=== PATIENT | male | born 1975 ===

== ENCOUNTER 2021-02-11 15:06 | Inpatient (IN) | payer SELFPAY ==
--- NOTE | 2021-02-11 17:11 | XRay Report ---
XR chest routine 2V INDICATION / CLINICAL INFORMATION: cough COMPARISON: None available. FINDINGS: SUPPORT DEVICES: None. HEART / MEDIASTINUM: No significant abnormality. LUNGS / PLEURA: Lungs are clear. Costophrenic sulci are sharp. No pneumothorax. ADDITIONAL FINDINGS: No significant additional findings. IMPRESSION: 1. No acute findings. Signer Name: Tommie Pizarro MD Signed: 02/11/2021 5:06 PM Workstation Name: [id number]
[2021-02-11 17:15] LABS: Basophils # (Auto) 0.1 K/mm3 (0.0-0.1); Basophils % (Auto) 0.6 % (0.0-1.8); Hematocrit 50.6 % (35.5-45.6); Hemoglobin 17.4 gm/dl (11.8-15.2); Lymphocytes # (Auto) 1.2 K/mm3 (1.2-5.4); Mean Corpuscular HGB Conc 34 % (32-34); Mean Corpuscular Volume 93 fl (84-94); Monocytes # (Auto) 0.9 K/mm3 (0.0-0.8); Monocytes % (Auto) 8.7 % (0.0-7.3); Platelet Count 168 K/mm3 (140-440); Red Blood Count 5.42 M/mm3 (3.65-5.03); Red Cell Distribution Width 13.4 % (13.2-15.2)
[2021-02-11 17:39] LABS: Alanine Aminotransferase 10 units/L (7-56); Albumin 4.4 g/dL (3.9-5); BUN/Creatinine Ratio 9; Blood Urea Nitrogen 11 mg/dL (9-20); Calcium 10.2 mg/dL (8.4-10.2); Hemolysis Index 11
--- NOTE | 2021-02-11 18:27 | Event Note ---
ED Screening Note Date of service: 02/11/21 Time: 18:26 ED Screening Note: This initial assessment/diagnostic orders/clinical plan/treatment(s) is/are subject to change based on patients health status, clinical progression and re- assessment by fellow clinical providers in the ED. Further treatment and workup at subsequent clinical providers discretion. Patient/guardian urged not to elope from the ED as their condition may be serious if not clinically assessed and managed. Initial orders include: labs reviewed, patient is in DKA, notified charge nurse of need for bed leroy
[2021-02-12] MEDS ORDERED: SODIUM CHLORIDE 0.9% 1000 ML 1,000 ML IV ONE ×2 (02:25→02:27)
[2021-02-12] MEDS ORDERED: DEXTROSE 50% IN WATER (25GM) 50 ML SYRINGE IV PRN ×2 (02:25→11:40)
--- NOTE | 2021-02-12 02:27 | Emergency Department Report ---
ED General Adult HPI - General Chief complaint: Hyperglycemia Stated complaint: COLD SYMPTOMS PUI?: Yes Time Seen by Provider: 02/12/21 02:22 Source: patient Mode of arrival: Ambulatory Limitations: No Limitations - History of Present Illness Initial comments: Patient is a 46-year-old male that presents emergency room with complaints of cough, cold, fever, body aches and sore throat. Patient also complains of increased urination. Patient states that he does not have a history of diabetes. Patient states his cold symptoms and fever started 3 days ago. Patient states he is also has loss of smell. Patient states that he has not been vaccinated against COVID-19. Patient states he has not been tested for COVID-19. Patient states he does not recall having a sick contact. -: Sudden Consistency: constant Improves with: rest Worsens with: movement Associated Symptoms: cough, fever/chills, loss of appetite, malaise - Related Data Allergies Allergy/AdvReac Type Severity Reaction Status Date / Time No Known Allergies Allergy Unverified 02/11/21 15:42 ED Review of Systems ROS: Stated complaint: COLD SYMPTOMS Other details as noted in HPI Constitutional: see HPI, chills, fever, malaise Eyes: denies: eye pain, eye discharge, vision change ENT: as per HPI, throat pain. denies: ear pain Respiratory: see HPI, cough. denies: shortness of breath, wheezing Cardiovascular: denies: chest pain, palpitations Endocrine: no symptoms reported, increased thirst, increased urine Gastrointestinal: denies: abdominal pain, nausea, diarrhea Genitourinary: denies: urgency, dysuria Musculoskeletal: denies: back pain, joint swelling, arthralgia Skin: denies: rash, lesions Neurological: denies: headache, weakness, paresthesias Psychiatric: denies: anxiety, depression Hematological/Lymphatic: denies: easy bleeding, easy bruising ED Past Medical Hx - Past Medical History Previous Medical History?: No - Surgical History Past Surgical History?: Yes Additional Surgical History: ankle surgery - Family History Family history: no significant - Social History Smoking Status: Never Smoker Substance Use Type: None ED Physical Exam - General Limitations: No Limitations General appearance: alert, in no apparent distress - Head Head exam: Present: atraumatic, normocephalic - Eye Eye exam: Present: normal appearance - ENT ENT exam: Present: mucous membranes dry - Neck Neck exam: Present: normal inspection - Respiratory Respiratory exam: Present: normal lung sounds bilaterally. Absent: respiratory distress - Cardiovascular Cardiovascular Exam: Present: regular rate, normal rhythm. Absent: systolic murmur, diastolic murmur, rubs, gallop - GI/Abdominal GI/Abdominal exam: Present: soft, normal bowel sounds - Rectal Rectal exam: Present: deferred - Extremities Exam Extremities exam: Present: normal inspection - Back Exam Back exam: Present: normal inspection - Neurological Exam Neurological exam: Present: alert, oriented X3 - Psychiatric Psychiatric exam: Present: normal affect, normal mood - Skin Skin exam: Present: warm, dry, intact, normal color. Absent: rash ED Course Vital Signs 02/11/21 02/11/21 15:43 15:47 Temperature 98.8 F 98.8 F Pulse Rate 97 H 93 H Respiratory 20 Rate Blood Pressure 113/78 Blood Pressure 113/78 [Right] O2 Sat by Pulse 98 98 Oximetry - Reevaluation(s) Reevaluation #1: Patient's labs are consistent with DKA. Patient will be started on DKA protocol to include fluids and insulin drip. 02/12/21 02:25 Reevaluation #2: I discussed all results with patient. I discussed plan of care with patient. Patient agrees with plan of care and admission. Patient to be admitted to the hospitalist service. 02/12/21 03:23 - Consultations Consultation #1: Hospitalist consulted for admission. Hospitalist to admit patient. 02/12/21 03:23 ED Medical Decision Making - Lab Data Result diagrams: 02/11/21 16:59 02/12/21 04:57 - Radiology Data Radiology results: report reviewed, image reviewed interpreted by me: Chest x-ray: No pneumonia, no pneumothorax, no foreign body, no osseous findings, no acute findings XR chest routine 2V INDICATION / CLINICAL INFORMATION: cough COMPARISON: None available. FINDINGS: SUPPORT DEVICES: None. HEART / MEDIASTINUM: No significant abnormality. LUNGS / PLEURA: Lungs are clear. Costophrenic sulci are sharp. No pneumothorax. ADDITIONAL FINDINGS: No significant additional findings. IMPRESSION: 1. No acute findings. - Medical Decision Making Patient is a 46-year-old male who presents emergency room with cold-like symptoms, fever, upper respiratory symptoms, increased urination and thirst. Patient had labs done which were essentially unremarkable except for finding consistent with DKA, acidosis, hyperglycemia. Patient had a chest x-ray which was negative for acute findings. I personally reviewed the chest x-ray. Patient started on insulin protocol and DKA protocol immediately after initial evaluation. Patient given IV fluids and placed on insulin drip. Patient admitted to the hospital service for further evaluation and treatment. Critical care time documented due to the multiple reassessments, prolonged time at the bedside, interpretation of diagnostics and labs. - Differential Diagnosis DKA, PUI, Covid, fever, upper respiratory infection Critical Care Time: Yes Critical care time in (mins) excluding proc time.: 35 Critical care attestation.: If time is entered above; I have spent that time in minutes in the direct care of this critically ill patient, excluding procedure time. Critical Care Time: 35 minutes ED Disposition Clinical Impression: Person under investigation for COVID-19 DKA (diabetic ketoacidosis) Qualifiers: Diabetes mellitus type: type 2 Diabetes mellitus complication detail: without coma Qualified Code(s): E11.10 - Type 2 diabetes mellitus with ketoacidosis without coma Fever Qualifiers: Fever type: unspecified Qualified Code(s): R50.9 - Fever, unspecified Upper respiratory infection Qualifiers: URI type: unspecified URI Qualified Code(s): J06.9 - Acute upper respiratory infection, unspecified Disposition: ADMITTED INPATIENT Is pt being admited?: Yes Does the pt Need Aspirin: No Condition: Critical Time of Disposition: 03:23
[2021-02-12] MEDS ORDERED: INSULIN REGULAR, HUMAN 100 UNITS in SODIUM CHLORIDE 0.9% 99 ML IV SCH ×2 (03:00→12:00)
[2021-02-12 03:57] LABS: BUN/Creatinine Ratio 12; Blood Urea Nitrogen 14 mg/dL (9-20); Calcium 10.3 mg/dL (8.4-10.2); Hemolysis Index 20
[2021-02-12] MEDS: D5W/0.45% NACL/KCL 20 MEQ 20 MEQ/1,000 ML BAG IV SCH ×2 (05:46→15:19)
[2021-02-12 06:01] LABS: BUN/Creatinine Ratio 10; Blood Urea Nitrogen 12 mg/dL (9-20); Calcium 8.8 mg/dL (8.4-10.2); Hemolysis Index 9
[2021-02-12 11:28] LABS: BUN/Creatinine Ratio 10; Blood Urea Nitrogen 9 mg/dL (9-20); Calcium 8.9 mg/dL (8.4-10.2); Hemolysis Index 3
[2021-02-12] MEDS ORDERED: MORPHINE 2 MG/1 ML INJ IV PRN (11:34)
[2021-02-12] MEDS ORDERED: ONDANSETRON 4 MG/2 ML INJ IV PRN (11:34)
[2021-02-12] MEDS ORDERED: METOCLOPRAMIDE 10 MG/2 ML INJ IV PRN (11:34)
[2021-02-12] MEDS ORDERED: ACETAMINOPHEN 325 MG TAB PO PRN (11:34)
[2021-02-12] MEDS ORDERED: HYDROmorphone 1 MG/1 ML INJ IV PRN (11:34)
--- NOTE | 2021-02-12 11:34 | History and Physical Report ---
History of Present Illness Date of examination: 02/12/21 Date of admission: 02/12/21 03:23 Chief complaint: Cough body aches and sore throat for 2 days Polyuria for 1 week History of present illness: Patient is a 46-year-old male that presents emergency room with complaints of cough, cold, fever, body aches and sore throat. Patient also complains of increased urination. Patient states that he does not have a history of diabetes. Patient states his cold symptoms and fever started 3 days ago. Patient states he is also has loss of smell. Patient states that he has not been vaccinated against COVID-19. Patient states he has not been tested for COVID-19. Patient states he does not recall having a sick contact. Past History Past Medical History: diabetes Past Surgical History: No surgical history Social history: lives with family, full code Family history: diabetes, hypertension Medications and Allergies Allergies Allergy/AdvReac Type Severity Reaction Status Date / Time No Known Allergies Allergy Unverified 02/11/21 15:42 Home Medications Medication Instructions Recorded Confirmed Last Taken Type Ascorbic Acid [Vitamin C] 1,000 mg PO QDAY #30 tablet 02/14/21 Unknown Rx Cholecalciferol (Vitamin D3) 5,000 unit PO DAILY #30 tablet 02/14/21 Unknown Rx [Vitamin D3] Insulin NPH Hum/Reg Insulin Hm 20 unit SQ BID #2 vial 02/14/21 Unknown Rx [Novolin 70-30 100 Unit/ml Vial] Zinc Sulfate 0 mg PO BID #20 capsule 02/14/21 Unknown Rx Active Meds: Active Medications Dextrose (Dextrose 50% In Water (25gm) 50 Ml Syringe) 50 ml IV Q30MIN PRN; Protocol PRN Reason: Hypoglycemia Insulin Human Regular 100 (units/ Sodium Chloride) 100 mls @ 1 mls/hr IV TITR SARA; Protocol Last Titration: 02/12/21 11:11 Dose: 5 units/hr, 5 mls/hr Documented by: Potassium Chloride/Dextrose/Sod Cl (D5w/0.45% Nacl/Kcl 20 Meq) 20 meq in 1,000 mls @ 125 mls/hr IV DIRECT SARA Last Admin: 02/12/21 05:46 Dose: 125 mls/hr Documented by: Review of Systems All systems: negative Constitutional: fever, chills, sweats, fatigue, poor appetite Respiratory: cough, cough with sputum, congestion Genitourinary Male: urinary frequency Exam - Constitutional Vitals: Temp Pulse Resp BP Pulse Ox 98.8 F 87 22 107/54 97 02/11/21 15:47 02/12/21 11:00 02/12/21 11:00 02/12/21 11:00 02/12/21 11:00 General appearance: Present: no acute distress, well-nourished - EENT Eyes: Present: PERRL ENT: hearing intact, clear oral mucosa, other (Tongue dry) - Neck Neck: Present: supple, normal ROM - Respiratory Respiratory effort: normal Respiratory: bilateral: CTA - Cardiovascular Heart rate: 78 Heart Sounds: Present: S1 & S2. Absent: rub, click - Extremities Extremities: pulses symmetrical, No edema Peripheral Pulses: within normal limits - Abdominal General gastrointestinal: Present: soft, non-tender, non-distended, normal bowel sounds Male genitourinary: Present: normal - Integumentary Integumentary: Present: clear, warm, dry - Musculoskeletal Musculoskeletal: gait normal, strength equal bilaterally - Psychiatric Psychiatric: appropriate mood/affect, intact judgment & insight - Neurologic Neurologic: CNII-XII intact, moves all extremities Results - Labs CBC & Chem 7: 02/14/21 05:20 02/14/21 05:20 Labs: Laboratory Last Values WBC 10.6 K/mm3 (4.5-11.0) 02/11/21 16:59 RBC 5.42 M/mm3 (3.65-5.03) H 02/11/21 16:59 Hgb 17.4 gm/dl (11.8-15.2) H 02/11/21 16:59 Hct 50.6 % (35.5-45.6) H 02/11/21 16:59 MCV 93 fl (84-94) 02/11/21 16:59 MCH 32 pg (28-32) 02/11/21 16:59 MCHC 34 % (32-34) 02/11/21 16:59 RDW 13.4 % (13.2-15.2) 02/11/21 16:59 Plt Count 168 K/mm3 (140-440) 02/11/21 16:59 Lymph % (Auto) 11.0 % (13.4-35.0) L 02/11/21 16:59 [place] % (Auto) 8.7 % (0.0-7.3) H 02/11/21 16:59 Eos % (Auto) 0.0 % (0.0-4.3) 02/11/21 16:59 Baso % (Auto) 0.6 % (0.0-1.8) 02/11/21 16:59 Lymph # (Auto) 1.2 K/mm3 (1.2-5.4) 02/11/21 16:59 [place] # (Auto) 0.9 K/mm3 (0.0-0.8) H 02/11/21 16:59 Eos # (Auto) 0.0 K/mm3 (0.0-0.4) 02/11/21 16:59 Baso # (Auto) 0.1 K/mm3 (0.0-0.1) 02/11/21 16:59 Seg Neutrophils % 79.7 % (40.0-70.0) H 02/11/21 16:59 Seg Neutrophils # 8.5 K/mm3 (1.8-7.7) H 02/11/21 16:59 D-Dimer 240.30 ng/mlDDU (0-234) H 02/12/21 02:42 VBG pH 7.202 (7.320-7.420) L 02/11/21 16:59 Sodium 139 mmol/L (137-145) 02/12/21 04:57 Potassium 4.6 mmol/L (3.6-5.0) 02/12/21 04:57 Chloride 104.5 mmol/L (98-107) 02/12/21 04:57 Carbon Dioxide 12 mmol/L (22-30) L 02/12/21 04:57 Anion Gap 27 mmol/L 02/12/21 04:57 BUN 12 mg/dL (9-20) 02/12/21 04:57 Creatinine 1.2 mg/dL (0.8-1.3) 02/12/21 04:57 Estimated GFR > 60 ml/min 02/12/21 10:34 BUN/Creatinine Ratio 10 % 02/12/21 10:34 Glucose 212 mg/dL (75-100) H 02/12/21 04:57 POC Glucose 217 mg/dL (70-105) H 02/12/21 10:58 Calcium 8.8 mg/dL (8.4-10.2) 02/12/21 04:57 Phosphorus 4.80 mg/dL (2.5-4.5) H 02/12/21 02:42 Magnesium 2.50 mg/dL (1.7-2.3) H 02/12/21 02:42 Ferritin 605.1 ng/mL (30.0-300.0) H 02/12/21 02:42 Total Bilirubin 0.60 mg/dL (0.1-1.2) 02/11/21 16:59 AST 8 units/L (5-40) 02/11/21 16:59 ALT 10 units/L (7-56) 02/11/21 16:59 Alkaline Phosphatase 180 units/L (35-129) H 02/11/21 16:59 Lactate Dehydrogenase 134 units/L (91-180) 02/12/21 02:42 C-Reactive Protein 6.80 mg/dL (0.00-1.30) H 02/12/21 02:42 Total Protein 8.6 g/dL (6.3-8.2) H 02/11/21 16:59 Albumin 4.4 g/dL (3.9-5) 02/11/21 16:59 Albumin/Globulin Ratio 1.0 % 02/11/21 16:59 Procalcitonin < 0.05 ng/mL (<0.15) 02/12/21 02:42 Assessment and Plan Advance Directives: Yes - Patient Problems (1) DKA (diabetic ketoacidosis) Status: Acute Qualifiers: Diabetes mellitus type: type 2 Diabetes mellitus complication detail: without coma Qualified Code(s): E11.10 - Type 2 diabetes mellitus with ketoacidosis without coma Plan to address problem: Patient initiated on DKA protocol and IV insulin and IV fluids Patient also initiated on insulin 70/30 20 units twice a day (2) Person under investigation for COVID-19 Status: Acute Plan to address problem: Coronavirus PCR in a.m. (3) Metabolic acidosis Status: Acute Plan to address problem: IV fluids and IV insulin for now (4) Hyponatremia Status: Acute Plan to address problem: Sodium should correct with correction of blood glucose levels (5) DVT prophylaxis Status: Acute Plan to address problem: On heparin and GI prophylaxis
[2021-02-12] MEDS ORDERED: POTASSIUM CHLORIDE 10 MEQ 10 MEQ/100 ML BAG IV PRN (12:00)
[2021-02-12 13:54] LABS: BUN/Creatinine Ratio 8; Blood Urea Nitrogen 7 mg/dL (9-20); Calcium 9.2 mg/dL (8.4-10.2); Hemolysis Index 1
[2021-02-12] MEDS: HEPARIN 5,000 UNIT/1 ML VIAL SUB-Q SCH ×2 (15:16→22:18)
[2021-02-12 16:38] LABS: BUN/Creatinine Ratio 8; Blood Urea Nitrogen 6 mg/dL (9-20); Calcium 9.1 mg/dL (8.4-10.2); Hemolysis Index 10
[2021-02-12] MEDS ORDERED: DEXTROSE 50% IN WATER (25GM) 50 ML SYRINGE IV ONE (17:30)
[2021-02-12 18:48] LABS: BUN/Creatinine Ratio 6; Blood Urea Nitrogen 5 mg/dL (9-20); Calcium 9.4 mg/dL (8.4-10.2); Hemolysis Index 5
[2021-02-12 18:49] LABS: BUN/Creatinine Ratio 6; Blood Urea Nitrogen 5 mg/dL (9-20); Calcium 9.3 mg/dL (8.4-10.2); Hemolysis Index 3
[2021-02-12 19:58] LABS: BUN/Creatinine Ratio 6; Blood Urea Nitrogen 5 mg/dL (9-20); Calcium 8.8 mg/dL (8.4-10.2); Hemolysis Index 9
[2021-02-13] MEDS ORDERED: DEXTROSE 50% IN WATER (25GM) 50 ML SYRINGE IV PRN (00:28)
[2021-02-13 08:49] LABS: BUN/Creatinine Ratio 8; Blood Urea Nitrogen 8 mg/dL (9-20); Calcium 9.7 mg/dL (8.4-10.2); Hemolysis Index 8
[2021-02-13 09:28] LABS: Bacteria,Urine 1+ /HPF (Negative); Bilirubin,Urine NEG (Negative); Blood,Urine NEG (Negative); Color,Urine Yellow (Yellow); Mucus,Urine FEW /HPF; Urobilinogen,Urine < 2.0 mg/dL (<2.0); WBC,Urine < 1.0 /HPF (0.0-6.0)
[2021-02-13] MEDS: HEPARIN 5,000 UNIT/1 ML VIAL SUB-Q SCH ×2 (10:15→23:37)
[2021-02-13] MEDS: INSULIN REGULAR, HUMAN 100 UNITS/1 ML SUB-Q SCH ×4 (10:15→23:37)
--- NOTE | 2021-02-13 14:06 | Consultation ---
History of Present Illness Consult date: 02/13/21 Requesting physician: KAMARI HESS Reason for consult: other (DKA; COVID-19 infection) History of present illness: PULMONARY/CCM CONSULT NOTE (Full dictation # [id number]) Please see dictated notes for full details Medications and Allergies Allergies Allergy/AdvReac Type Severity Reaction Status Date / Time No Known Allergies Allergy Unverified 02/11/21 15:42 Active Meds: Active Medications Acetaminophen (Acetaminophen 325 Mg Tab) 650 mg PO Q4H PRN PRN Reason: Pain MILD(1-3)/Fever >100.5/MAY Dextrose (Dextrose 50% In Water (25gm) 50 Ml Syringe) 0 ml IV Q30MIN PRN; Protocol PRN Reason: Hypoglycemia Heparin Sodium (Porcine) (Heparin 5,000 Unit/1 Ml Vial) 5,000 unit SUB-Q Q12HR [facility] Last Admin: 02/13/21 10:15 Dose: 5,000 unit Documented by: Hydromorphone HCl (Hydromorphone 1 Mg/1 Ml Inj) 0.5 mg IV Q3H PRN PRN Reason: Pain , Severe (7-10) Potassium Chloride/Dextrose/Sod Cl (D5w/0.45% Nacl/Kcl 20 Meq) 20 meq in 1,000 mls @ 125 mls/hr IV DIRECT SARA Last Infusion: 02/12/21 19:06 Dose: 0 mls/hr Documented by: Potassium Chloride (Kcl 10meq/100ml) 10 meq in 100 mls @ 100 mls/hr IV Q1H PRN PRN Reason: SEE COMMENTS Insulin Human Regular (Insulin Regular, Human 100 Units/1 Ml) 0 units SUB-Q A [facility]; Protocol Last Admin: 02/13/21 10:15 Dose: 3 units Documented by: Metoclopramide HCl (Metoclopramide 10 Mg/2 Ml Inj) 10 mg IV Q6H PRN PRN Reason: Nausea And Vomiting Morphine Sulfate (Morphine 2 Mg/1 Ml Inj) 2 mg IV Q4H PRN PRN Reason: Pain, Moderate (4-6) Ondansetron HCl (Ondansetron 4 Mg/2 Ml Inj) 4 mg IV Q3H PRN PRN Reason: Nausea And Vomiting Sodium Chloride (Sodium Chloride 0.9% 10 Ml Flush Syringe) 10 ml IV BID SARA Last Admin: 02/13/21 10:12 Dose: 10 ml Documented by: Sodium Chloride (Sodium Chloride 0.9% 10 Ml Flush Syringe) 10 ml IV PRN PRN PRN Reason: LINE FLUSH Physical Examination Vital signs: Vital Signs Temp Pulse Resp BP Pulse Ox 98.8 F 97 H 20 113/78 98 02/11/21 15:43 02/11/21 15:43 02/11/21 15:43 02/11/21 15:43 02/11/21 15:43 Results - Laboratory Findings CBC and BMP: 02/11/21 16:59 02/13/21 13:08 PT/INR, D-dimer D-Dimer 240.30 ng/mlDDU (0-234) H 02/12/21 02:42 Abnormal lab findings: Abnormal Labs 02/11/21 02/11/21 02/11/21 15:44 16:59 16:59 RBC 5.42 H Hgb 17.4 H Hct 50.6 H Lymph % (Auto) 11.0 L [place] % (Auto) 8.7 H [place] # (Auto) 0.9 H Seg Neutrophils % 79.7 H Seg Neutrophils # 8.5 H D-Dimer VBG pH Sodium 129 L Chloride 94.1 L Carbon Dioxide 11 L BUN Glucose 409 H POC Glucose 474 H Hemoglobin A1c Calcium Phosphorus Magnesium Ferritin Alkaline Phosphatase 180 H C-Reactive Protein Total Protein 8.6 H Coronavirus (PCR) 02/11/21 02/11/21 02/12/21 16:59 23:18 02:42 RBC Hgb Hct Lymph % (Auto) [place] % (Auto) [place] # (Auto) Seg Neutrophils % Seg Neutrophils # D-Dimer VBG pH 7.202 L Sodium Chloride Carbon Dioxide BUN Glucose POC Glucose 445 H Hemoglobin A1c Calcium Phosphorus 4.80 H Magnesium 2.50 H Ferritin Alkaline Phosphatase C-Reactive Protein Total Protein Coronavirus (PCR) 02/12/21 02/12/21 02/12/21 02:42 02:42 02:42 RBC Hgb Hct Lymph % (Auto) [place] % (Auto) [place] # (Auto) Seg Neutrophils % Seg Neutrophils # D-Dimer 240.30 H VBG pH Sodium 134 L Chloride 96.2 L Carbon Dioxide 9 L* BUN Glucose 427 H POC Glucose Hemoglobin A1c Calcium 10.3 H Phosphorus Magnesium Ferritin 605.1 H Alkaline Phosphatase C-Reactive Protein 6.80 H Total Protein Coronavirus (PCR) 02/12/21 02/12/21 02/12/21 03:12 04:17 04:57 RBC Hgb Hct Lymph % (Auto) [place] % (Auto) [place] # (Auto) Seg Neutrophils % Seg Neutrophils # D-Dimer VBG pH Sodium Chloride Carbon Dioxide 12 L BUN Glucose 212 H POC Glucose 420 H 290 H Hemoglobin A1c Calcium Phosphorus Magnesium Ferritin Alkaline Phosphatase C-Reactive Protein Total Protein Coronavirus (PCR) 02/12/21 02/12/21 02/12/21 05:31 06:55 10:34 RBC Hgb Hct Lymph % (Auto) [place] % (Auto) [place] # (Auto) Seg Neutrophils % Seg Neutrophils # D-Dimer VBG pH Sodium Chloride Carbon Dioxide 12 L BUN Glucose 232 H POC Glucose 208 H 175 H Hemoglobin A1c Calcium Phosphorus Magnesium Ferritin Alkaline Phosphatase C-Reactive Protein Total Protein Coronavirus (PCR) 02/12/21 02/12/21 02/12/21 10:58 13:14 13:14 RBC Hgb Hct Lymph % (Auto) [place] % (Auto) [place] # (Auto) Seg Neutrophils % Seg Neutrophils # D-Dimer VBG pH Sodium Chloride Carbon Dioxide BUN Glucose POC Glucose 217 H Hemoglobin A1c 13.3 H Calcium Phosphorus 1.80 L D Magnesium Ferritin Alkaline Phosphatase C-Reactive Protein Total Protein Coronavirus (PCR) 02/12/21 02/12/21 02/12/21 13:14 15:10 16:05 RBC Hgb Hct Lymph % (Auto) [place] % (Auto) [place] # (Auto) Seg Neutrophils % Seg Neutrophils # D-Dimer VBG pH Sodium 136 L Chloride 107.6 H Carbon Dioxide 13 L 12 L BUN 7 L 6 L Glucose 243 H 194 H POC Glucose 236 H Hemoglobin A1c Calcium Phosphorus Magnesium Ferritin Alkaline Phosphatase C-Reactive Protein Total Protein Coronavirus (PCR) 02/12/21 02/12/21 02/12/21 18:20 18:20 19:26 RBC Hgb Hct Lymph % (Auto) [place] % (Auto) [place] # (Auto) Seg Neutrophils % Seg Neutrophils # D-Dimer VBG pH Sodium Chloride 108.5 H 109.5 H 107.4 H Carbon Dioxide 17 L 17 L 15 L BUN 5 L 5 L 5 L Glucose POC Glucose Hemoglobin A1c Calcium Phosphorus Magnesium Ferritin Alkaline Phosphatase C-Reactive Protein Total Protein Coronavirus (PCR) 02/12/21 02/13/21 02/13/21 Unknown 00:11 07:58 RBC Hgb Hct Lymph % (Auto) [place] % (Auto) [place] # (Auto) Seg Neutrophils % Seg Neutrophils # D-Dimer VBG pH Sodium Chloride Carbon Dioxide 12 L BUN 8 L Glucose 253 H POC Glucose 251 H Hemoglobin A1c Calcium Phosphorus Magnesium Ferritin Alkaline Phosphatase C-Reactive Protein Total Protein Coronavirus (PCR) Positive A 02/13/21 09:03 RBC Hgb Hct Lymph % (Auto) [place] % (Auto) [place] # (Auto) Seg Neutrophils % Seg Neutrophils # D-Dimer VBG pH Sodium Chloride Carbon Dioxide BUN Glucose POC Glucose 231 H Hemoglobin A1c Calcium Phosphorus Magnesium Ferritin Alkaline Phosphatase C-Reactive Protein Total Protein Coronavirus (PCR)
[2021-02-13 14:11] LABS: BUN/Creatinine Ratio 9; Blood Urea Nitrogen 9 mg/dL (9-20); Hemolysis Index 27
--- NOTE | 2021-02-13 17:30 | Discharge Summary ---
Providers - Providers Date of Admission: 02/12/21 03:23 Date of discharge: 02/13/21 Attending physician: KAMARI HESS 02/12/21 11:34 Consult to Physician [CONS] Routine Comment: Consulting Provider: ANTONIA BRADFORD Physician Instructions: Reason For Exam: DKA 02/12/21 11:40 Consult to Dietitian/Nutrition [CONS] Routine Physician Instructions: Diabetic diet education Reason For Exam: DKA Reason for Consult: Nutrition Recommendations Reason for Consult: Diet education Primary care physician: [employer] Hospitalization Condition: Critical Disposition: 01 HOME / SELF CARE / HOMELESS - Discharge Diagnoses (1) Person under investigation for COVID-19 Status: Acute (2) DKA (diabetic ketoacidosis) Status: Acute Qualifiers: Diabetes mellitus type: type 2 Diabetes mellitus complication detail: without coma Qualified Code(s): E11.10 - Type 2 diabetes mellitus with ketoacidosis without coma Exam - Constitutional Vitals: Temp Pulse Resp BP Pulse Ox 98.2 F 81 16 91/54 98 02/13/21 10:27 02/13/21 13:00 02/13/21 15:00 02/13/21 15:00 02/13/21 15:00 Plan Follow up with: PRIMARY CAREMD [Primary Care Provider] - 3-5 Days
--- NOTE | 2021-02-13 17:33 | Progress Note ---
Assessment and Plan - Patient Problems (1) Person under investigation for COVID-19 Status: Acute Plan to address problem: Coronavirus PCR positive On room air No need for supplemental oxygen (2) DKA (diabetic ketoacidosis) Status: Acute Qualifiers: Diabetes mellitus type: type 2 Diabetes mellitus complication detail: without coma Qualified Code(s): E11.10 - Type 2 diabetes mellitus with ketoacidosis without coma Plan to address problem: DKA improved but patient still in metabolic acidosis IV insulin stop patient still in metabolic acidosis glucose levels are improved IV fluids for now and frequent Accu-Cheks and high-dose insulin coverage Patient also initiated on Novolin 70/30 20 units twice a day Patient counseled about diabetes and the need for regular follow-ups with his PCP (3) Metabolic acidosis Status: Acute Plan to address problem: Improving (4) Hyponatremia Status: Acute Plan to address problem: Sodium should correct with correction of blood glucose levels (5) DVT prophylaxis Status: Acute Plan to address problem: On heparin and GI prophylaxis Subjective Date of service: 02/13/21 Principal diagnosis: DKA and coronavirus PCR positive Interval history: Patient is doing well now and on room air No need for oxygen Patient is coronavirus positive Glucose levels are better patient still in severe metabolic acidosis Objective - Constitutional Vitals: Vital Signs - 12hr 02/13/21 02/13/21 02/13/21 06:00 06:30 07:00 Temperature Pulse Rate Respiratory 16 Rate Blood Pressure 126/85 126/85 131/90 O2 Sat by Pulse 99 99 97 Oximetry 02/13/21 02/13/21 02/13/21 08:00 09:00 09:16 Temperature Pulse Rate Respiratory Rate Blood Pressure O2 Sat by Pulse 98 97 97 Oximetry 02/13/21 02/13/21 02/13/21 09:30 09:46 10:00 Temperature Pulse Rate Respiratory Rate Blood Pressure O2 Sat by Pulse 96 99 99 Oximetry 02/13/21 02/13/21 02/13/21 10:16 10:25 10:27 Temperature 98.2 F Pulse Rate 110 H Respiratory 16 Rate Blood Pressure 119/77 O2 Sat by Pulse 98 99 Oximetry 02/13/21 02/13/21 02/13/21 11:00 12:00 13:00 Temperature Pulse Rate 94 H 94 H 81 Respiratory 13 20 17 Rate Blood Pressure 109/85 106/75 110/74 O2 Sat by Pulse 98 99 97 Oximetry 02/13/21 02/13/21 14:00 15:00 Temperature Pulse Rate Respiratory 16 16 Rate Blood Pressure 112/66 91/54 O2 Sat by Pulse 95 98 Oximetry General appearance: Present: no acute distress, well-nourished - EENT Eyes: PERRL, EOM intact ENT: hearing intact, clear oral mucosa Ears: bilateral: normal - Neck Neck: supple, normal ROM - Respiratory Respiratory effort: normal Respiratory: bilateral: CTA - Breasts Breasts: normal - Cardiovascular Heart rate: 78 Rhythm: regular Heart Sounds: Present: S1 & S2. Absent: gallop, rub Extremities: pulses intact, No edema, normal color, Full ROM - Gastrointestinal General gastrointestinal: Present: soft, non-tender, non-distended, normal bowel sounds - Genitourinary Male genitourinary: normal - Integumentary Integumentary: clear, warm, dry - Musculoskeletal Musculoskeletal: 1, strength equal bilaterally - Neurologic Neurologic: moves all extremities - Psychiatric Psychiatric: memory intact, appropriate mood/affect, intact judgment & insight - Labs CBC & Chem 7: 02/14/21 05:20 02/14/21 05:20 Labs: Abnormal lab results 02/12/21 02/12/21 02/12/21 Range/Units 18:20 18:20 19:26 Sodium (137-145) mmol/L Chloride 108.5 H 109.5 H 107.4 H (98-107) mmol/L Carbon Dioxide 17 L 17 L 15 L (22-30) mmol/L BUN 5 L 5 L 5 L (9-20) mg/dL Glucose (75-100) mg/dL POC Glucose (70-105) mg/dL 02/13/21 02/13/21 02/13/21 Range/Units 00:11 07:58 09:03 Sodium (137-145) mmol/L Chloride (98-107) mmol/L Carbon Dioxide 12 L (22-30) mmol/L BUN 8 L (9-20) mg/dL Glucose 253 H (75-100) mg/dL POC Glucose 251 H 231 H (70-105) mg/dL 02/13/21 02/13/21 Range/Units 13:08 15:37 Sodium 136 L (137-145) mmol/L Chloride (98-107) mmol/L Carbon Dioxide 11 L (22-30) mmol/L BUN (9-20) mg/dL Glucose 250 H (75-100) mg/dL POC Glucose 249 H (70-105) mg/dL
[2021-02-13] MEDS ORDERED: SODIUM CHLORIDE 0.9% 1000 ML 1,000 ML IV SCH (18:30)
--- NOTE | 2021-02-13 23:10 | Consultation ---
DATE OF CONSULTATION: 02/13/2021 PULMONARY CRITICAL CARE CONSULTATION CONSULTING PHYSICIAN: Dr. Viera. REASON FOR CONSULTATION: Diabetic ketoacidosis. CHIEF COMPLAINT AND HISTORY OF PRESENT ILLNESS: The patient is a 46-year-old male who denied any real past medical history, came into the emergency room complaining of a cough, cold, fevers, body aches and a sore throat. He also complained of polydipsia or polyuria. Denied a history of diabetes. His symptoms started 3 days before presentation. He also admitted to loss of smell and loss of taste. He has not been vaccinated about COVID-19 and had not been tested so far for COVID-19 and was started on IV insulin on DKA protocol and we are asked to assist with management. However, the patient since tested positive for COVID-19 infection. When I stopped by to see him, he was resting in bed. Denied any real respiratory symptoms. He states that his sense of taste and smell had come back. He was on room air. Denied chest pain. Denied gross or streaky hemoptysis. When asked about tobacco use/abuse history, he described himself as a never smoker. This really is as much of the history of presentation as I have. PAST MEDICAL HISTORY: None. PAST SURGICAL HISTORY: He has had surgery to his ankle. MEDICATIONS: He was on at the time I stopped by to see him, according to the medication administration record included the following: Tylenol 650 mg p.o. q. 4 hours p.r.n. mild pain or fever, heparin 5000 units subQ q. 12 hours, Dilaudid 0.5 mg IV q. 3 hours p.r.n. severe pain, insulin via sliding scale. The IV insulin has been stopped. Reglan 10 mg IV q. 6 hours p.r.n. nausea and vomiting, Zofran 4 mg IV q. 3 hours p.r.n. nausea and vomiting, morphine sulfate 2 mg IV q. 4 hours p.r.n. moderate pain, potassium was being replaced. He was also on potassium. He had been on a D5 half NS with 20 mEq of K drip at 125 mL per hour. ALLERGIES: No known drug allergies. DIET: Well built gentleman, obese actually. Denies acute weight loss or gain in the preceding few weeks to months. SOCIAL HISTORY: Lives in the community. Denies alcohol, tobacco or illicit drug use or abuse. FAMILY HISTORY: Otherwise, noncontributory. REVIEW OF SYSTEMS: No loss of consciousness. No new onset seizures. No new onset focal weakness. Denies gross hematochezia or melena. Denies gross hematuria or dysuria. He had the polyuria. He had the polydipsia. He denies heat or cold intolerance. Complete 13 system review of system was obtained. Pertinent positives and/or negatives as in body of the history above, otherwise noncontributory. PHYSICAL EXAMINATION: VITAL SIGNS: At presentation and since he has been afebrile, presentation temperature 98.8 degrees Fahrenheit, pulse of 97, respiratory rate of 20, blood pressure 113/78, O2 sats were 98% on room air. GENERAL: He is a middle-aged obese male. Normocephalic, atraumatic, talking to me in full sentences without significantly increased respiratory effort at rest. HEAD, EYES, EARS, NOSE AND THROAT: Anicteric. No conjunctival erythema. Oropharynx was moist. NECK: No gross jugular venous distention, no thyromegaly. Grossly, there were no palpable lymph nodes in the supraclavicular or submandibular lymph node chains. LUNGS: Auscultation of both lung yun unremarkable. Lungs were clear bilaterally with good bilateral air movement. HEART: Sounds 1 and 2 are heard. Regular rate and rhythm without overt rubs or murmurs. ABDOMEN: Soft, full, bowel sounds are positive, nontender. No palpable hepatosplenomegaly. EXTREMITIES: Without overt digital clubbing or cyanosis, no pedal edema. Pedal pulses are 2+ bilaterally. NEUROLOGIC: Pupils are equal, round, about 4 mm, reactive to light. Extraocular muscle movements are intact. He moves all 4 extremities spontaneously. SKIN: Normal turgor in the areas examined without overt cellulitis or rash. Please see the wound care nurses' notes for full description of his skin. PSYCHIATRIC: Mood was normal. Affect was appropriate. He appears to have intact judgment and insight. LABORATORY DATA: From my review are as follows: Admission white cell count was 10,600, hemoglobin 17.4, hematocrit 50.6, platelet count 168. No manual differential. D-dimer 240. Venous blood gases showed a pH of 7.20. Serum sodium was 129, potassium 5.0, chloride 94, bicarbonate 11, anion gap 29, BUN 11, creatinine 1.2, glucose was 409. Liver function test within normal limits. Coronavirus PCR test has come back positive. Most recent electrolytes shows his anion gap at 26, glucose at 250. Urinalysis negative for nitrites or leukocyte esterase, really unremarkable. No blood cultures. Normal chest x-ray. ASSESSMENT: 1. Diabetic ketoacidosis. 2. New onset diabetes. 3. Coronavirus-19 infection. 4. Anion gap metabolic acidosis. 5. Hemoconcentration at presentation. PLAN: The patient does not have significant pulmonary symptoms at this time and being diabetic also, no acute indication for systemic steroids. I will put him on vitamin C, zinc supplementation. Infectious disease consultation will be placed to decide on remdesivir therapy. He certainly though can tolerate it based on the liver function and kidney function. The question is, is there any real indication to put him on remdesivir therapy at this point in time. He will be kept in contact and airborne isolation. He is appropriately on DVT prophylaxis. I will be putting him on GI prophylaxis with Pepcid. Flu and pneumonia vaccination will be addressed per protocol. Thank you very much for the consult to follow along and make further recommendations as picture progresses/becomes clearer. Supplemental oxygen will be offered to keep O2 sats greater than or equal to 92% as needed. TID: [id number] RECEIPT: [id number] ESME/GEOVANNI
[2021-02-13] MEDS: ASCORBIC ACID 500 MG TAB PO SCH (23:37)
[2021-02-13] MEDS: ZINC SULFATE 220 MG CAP PO SCH (23:37)
[2021-02-14 07:07] LABS: Alanine Aminotransferase 7 units/L (7-56); Albumin 3.4 g/dL (3.9-5); BUN/Creatinine Ratio 11; Blood Urea Nitrogen 10 mg/dL (9-20); Calcium 9.3 mg/dL (8.4-10.2); Hemolysis Index 64
[2021-02-14 07:59] LABS: Hematocrit 48.4 % (35.5-45.6); Mean Corpuscular HGB Conc 33 % (32-34); Mean Corpuscular Volume 98 fl (84-94); Platelet Count 133 K/mm3 (140-440); Red Blood Count 4.96 M/mm3 (3.65-5.03); Red Cell Distribution Width 13.8 % (13.2-15.2)
[2021-02-14] MEDS: INSULIN REGULAR, HUMAN 100 UNITS/1 ML SUB-Q SCH ×3 (08:51→17:27)
--- NOTE | 2021-02-14 12:55 | Consultation ---
History of Present Illness - Reason for Consult Consult date: 02/14/21 COVID Requesting physician: ANTONIA BRADFORD - History of Present Illness The patient is a 46-year-old male diagnosed with COVID-19, symptomatic for 3 days. Also noted to have DKA, hyperglycemia. Admitted to the hospital. He has remained on room air. Labs reviewed, normal WBC, D-dimer 240, CRP 6.8, ferritin 605, procalcitonin 0.05. Review of Systems: reviewed in the chart, unable to obtain, minimize risk of transmission Medications and Allergies Allergies Allergy/AdvReac Type Severity Reaction Status Date / Time No Known Allergies Allergy Unverified 02/11/21 15:42 Active Meds: Active Medications Acetaminophen (Acetaminophen 325 Mg Tab) 650 mg PO Q4H PRN PRN Reason: Pain MILD(1-3)/Fever >100.5/MAY Ascorbic Acid (Ascorbic Acid 500 Mg Tab) 500 mg PO BID SARA Last Admin: 02/13/21 23:37 Dose: 500 mg Documented by: Dextrose (Dextrose 50% In Water (25gm) 50 Ml Syringe) 0 ml IV Q30MIN PRN; Protocol PRN Reason: Hypoglycemia Heparin Sodium (Porcine) (Heparin 5,000 Unit/1 Ml Vial) 5,000 unit SUB-Q Q12HR SARA Last Admin: 02/13/21 23:37 Dose: 5,000 unit Documented by: Hydromorphone HCl (Hydromorphone 1 Mg/1 Ml Inj) 0.5 mg IV Q3H PRN PRN Reason: Pain , Severe (7-10) Potassium Chloride (Kcl 10meq/100ml) 10 meq in 100 mls @ 100 mls/hr IV Q1H PRN PRN Reason: SEE COMMENTS Sodium Chloride (Nacl 0.9% 1000 Ml) 1,000 mls @ 100 mls/hr IV DIRECT SARA Insulin Human Regular (Insulin Regular, Human 100 Units/1 Ml) 0 units SUB-Q ACHS SARA; Protocol Last Admin: 02/14/21 08:51 Dose: 3 units Documented by: Metoclopramide HCl (Metoclopramide 10 Mg/2 Ml Inj) 10 mg IV Q6H PRN PRN Reason: Nausea And Vomiting Morphine Sulfate (Morphine 2 Mg/1 Ml Inj) 2 mg IV Q4H PRN PRN Reason: Pain, Moderate (4-6) Ondansetron HCl (Ondansetron 4 Mg/2 Ml Inj) 4 mg IV Q3H PRN PRN Reason: Nausea And Vomiting Sodium Chloride (Sodium Chloride 0.9% 10 Ml Flush Syringe) 10 ml IV BID [facility] Last Admin: 02/13/21 23:37 Dose: 10 ml Documented by: Sodium Chloride (Sodium Chloride 0.9% 10 Ml Flush Syringe) 10 ml IV PRN PRN PRN Reason: LINE FLUSH Zinc Sulfate (Zinc Sulfate 220 Mg Cap) 220 mg PO BID [facility] Last Admin: 02/13/21 23:37 Dose: 220 mg Documented by: Physical Examination - Physical Exam Narrative exam: Physical Exam (reviewed in chart to minimize risk of transmission) Constitutional: deferred Head, Ears, Nose: deferred Eyes: deferred Neck: deferred Oral: deferred Cardiovascular: deferred Respiratory: deferred GI: deferred Musculoskeletal: deferred Skin: deferred Hem/Lymphatic: deferred Psych: deferred Neurological: deferred - Constitutional Vitals: Vital Signs Temp Pulse Resp BP Pulse Ox 98.2 F 68 18 97/58 98 02/13/21 10:27 02/14/21 03:00 02/14/21 03:00 02/14/21 03:00 02/14/21 03:00 Results - Labs CBC & Chem 7: 02/14/21 05:20 02/14/21 05:20 Labs: Abnormal lab results 02/13/21 02/13/21 02/13/21 Range/Units 13:08 15:37 17:54 Hgb (11.8-15.2) gm/dl Hct (35.5-45.6) % MCV (84-94) fl Plt Count (140-440) K/mm3 Sodium 136 L (137-145) mmol/L Carbon Dioxide 11 L (22-30) mmol/L Glucose 250 H (75-100) mg/dL POC Glucose 249 H 241 H (70-105) mg/dL Alkaline Phosphatase (35-129) units/L Albumin (3.9-5) g/dL 02/13/21 02/14/21 02/14/21 Range/Units 21:32 05:20 05:20 Hgb 16.0 H (11.8-15.2) gm/dl Hct 48.4 H (35.5-45.6) % MCV 98 H (84-94) fl Plt Count 133 L (140-440) K/mm3 Sodium 135 L (137-145) mmol/L Carbon Dioxide 14 L (22-30) mmol/L Glucose 171 H (75-100) mg/dL POC Glucose 246 H (70-105) mg/dL Alkaline Phosphatase 146 H (35-129) units/L Albumin 3.4 L (3.9-5) g/dL 02/14/21 Range/Units 08:40 Hgb (11.8-15.2) gm/dl Hct (35.5-45.6) % MCV (84-94) fl Plt Count (140-440) K/mm3 Sodium (137-145) mmol/L Carbon Dioxide (22-30) mmol/L Glucose (75-100) mg/dL POC Glucose 200 H (70-105) mg/dL Alkaline Phosphatase (35-129) units/L Albumin (3.9-5) g/dL - Imaging and Cardiology Chest x-ray: report reviewed, image reviewed Assessment and Plan Cultures: SARS CoV2 PCR: positive A/P: 46/M with: #COVID-19: On room air. Labs reviewed, normal WBC, D-dimer 240, CRP 6.8, ferritin 605, procalcitonin 0.05. CXR without pneumonia #DKA, uncontrolled diabetes Recs: Remains on room air, no indication for steroids or remdesivir at this time Kane Stephens MD, FACP [facility] O: [phone] F: [phone]
[2021-02-14] MEDS: ASCORBIC ACID 500 MG TAB PO SCH (13:36)
[2021-02-14] MEDS: ZINC SULFATE 220 MG CAP PO SCH (13:36)
[2021-02-14] MEDS: HEPARIN 5,000 UNIT/1 ML VIAL SUB-Q SCH (13:36)
--- NOTE | 2021-02-14 13:57 | Progress Note ---
Assessment and Plan Patient is a 46-year-old male that presents emergency room with complaints of cough, cold, fever, body aches and sore throat. Patient also complains of increased urination. Patient states that he does not have a history of diabetes. Patient states his cold symptoms and fever started 3 days ago. Patient states he is also has loss of smell. Patient states that he has not been vaccinated against COVID-19. Patient states he has not been tested for COVID-19. Patient states he does not recall having a sick contact. Subjective Date of service: 02/14/21 Interval history: Patient is a 46-year-old male that presents emergency room with complaints of cough, cold, fever, body aches and sore throat. Patient also complains of increased urination. Patient states that he does not have a history of diabetes. Patient states his cold symptoms and fever started 3 days ago. Patient states he is also has loss of smell. Patient states that he has not been vaccinated against COVID-19. Patient states he has not been tested for COVID-19. Patient states he does not recall having a sick contact. Objective Vital Signs - 12hr 02/14/21 02/14/21 02:00 03:00 Pulse Rate 70 68 Respiratory 16 18 Rate Blood Pressure 104/56 97/58 O2 Sat by Pulse 93 98 Oximetry CBC and BMP: 02/14/21 05:20 02/14/21 05:20 ABG, PT/INR, D-dimer: PT/INR, D-dimer D-Dimer 240.30 ng/mlDDU (0-234) H 02/12/21 02:42 Abnormal lab findings: Abnormal Labs 02/11/21 02/11/21 02/11/21 15:44 16:59 16:59 RBC 5.42 H Hgb 17.4 H Hct 50.6 H MCV Plt Count Lymph % (Auto) 11.0 L Maury % (Auto) 8.7 H Maury # (Auto) 0.9 H Seg Neutrophils % 79.7 H Seg Neutrophils # 8.5 H D-Dimer VBG pH Sodium 129 L Chloride 94.1 L Carbon Dioxide 11 L BUN Glucose 409 H POC Glucose 474 H Hemoglobin A1c Calcium Phosphorus Magnesium Ferritin Alkaline Phosphatase 180 H C-Reactive Protein Total Protein 8.6 H Albumin Coronavirus (PCR) 02/11/21 02/11/21 02/12/21 16:59 23:18 02:42 RBC Hgb Hct MCV Plt Count Lymph % (Auto) Maury % (Auto) Maury # (Auto) Seg Neutrophils % Seg Neutrophils # D-Dimer VBG pH 7.202 L Sodium Chloride Carbon Dioxide BUN Glucose POC Glucose 445 H Hemoglobin A1c Calcium Phosphorus 4.80 H Magnesium 2.50 H Ferritin Alkaline Phosphatase C-Reactive Protein Total Protein Albumin Coronavirus (PCR) 02/12/21 02/12/21 02/12/21 02:42 02:42 02:42 RBC Hgb Hct MCV Plt Count Lymph % (Auto) Maury % (Auto) Maury # (Auto) Seg Neutrophils % Seg Neutrophils # D-Dimer 240.30 H VBG pH Sodium 134 L Chloride 96.2 L Carbon Dioxide 9 L* BUN Glucose 427 H POC Glucose Hemoglobin A1c Calcium 10.3 H Phosphorus Magnesium Ferritin 605.1 H Alkaline Phosphatase C-Reactive Protein 6.80 H Total Protein Albumin Coronavirus (PCR) 02/12/21 02/12/21 02/12/21 03:12 04:17 04:57 RBC Hgb Hct MCV Plt Count Lymph % (Auto) Maury % (Auto) Maury # (Auto) Seg Neutrophils % Seg Neutrophils # D-Dimer VBG pH Sodium Chloride Carbon Dioxide 12 L BUN Glucose 212 H POC Glucose 420 H 290 H Hemoglobin A1c Calcium Phosphorus Magnesium Ferritin Alkaline Phosphatase C-Reactive Protein Total Protein Albumin Coronavirus (PCR) 02/12/21 02/12/21 02/12/21 05:31 06:55 10:34 RBC Hgb Hct MCV Plt Count Lymph % (Auto) Maury % (Auto) Maury # (Auto) Seg Neutrophils % Seg Neutrophils # D-Dimer VBG pH Sodium Chloride Carbon Dioxide 12 L BUN Glucose 232 H POC Glucose 208 H 175 H Hemoglobin A1c Calcium Phosphorus Magnesium Ferritin Alkaline Phosphatase C-Reactive Protein Total Protein Albumin Coronavirus (PCR) 02/12/21 02/12/21 02/12/21 10:58 13:14 13:14 RBC Hgb Hct MCV Plt Count Lymph % (Auto) Maury % (Auto) Maury # (Auto) Seg Neutrophils % Seg Neutrophils # D-Dimer VBG pH Sodium Chloride Carbon Dioxide BUN Glucose POC Glucose 217 H Hemoglobin A1c 13.3 H Calcium Phosphorus 1.80 L D Magnesium Ferritin Alkaline Phosphatase C-Reactive Protein Total Protein Albumin Coronavirus (PCR) 02/12/21 02/12/21 02/12/21 13:14 15:10 16:05 RBC Hgb Hct MCV Plt Count Lymph % (Auto) Maury % (Auto) Maury # (Auto) Seg Neutrophils % Seg Neutrophils # D-Dimer VBG pH Sodium 136 L Chloride 107.6 H Carbon Dioxide 13 L 12 L BUN 7 L 6 L Glucose 243 H 194 H POC Glucose 236 H Hemoglobin A1c Calcium Phosphorus Magnesium Ferritin Alkaline Phosphatase C-Reactive Protein Total Protein Albumin Coronavirus (PCR) 02/12/21 02/12/21 02/12/21 18:20 18:20 19:26 RBC Hgb Hct MCV Plt Count Lymph % (Auto) Maury % (Auto) Maury # (Auto) Seg Neutrophils % Seg Neutrophils # D-Dimer VBG pH Sodium Chloride 108.5 H 109.5 H 107.4 H Carbon Dioxide 17 L 17 L 15 L BUN 5 L 5 L 5 L Glucose POC Glucose Hemoglobin A1c Calcium Phosphorus Magnesium Ferritin Alkaline Phosphatase C-Reactive Protein Total Protein Albumin Coronavirus (PCR) 02/12/21 02/13/21 02/13/21 Unknown 00:11 07:58 RBC Hgb Hct MCV Plt Count Lymph % (Auto) Maury % (Auto) Maury # (Auto) Seg Neutrophils % Seg Neutrophils # D-Dimer VBG pH Sodium Chloride Carbon Dioxide 12 L BUN 8 L Glucose 253 H POC Glucose 251 H Hemoglobin A1c Calcium Phosphorus Magnesium Ferritin Alkaline Phosphatase C-Reactive Protein Total Protein Albumin Coronavirus (PCR) Positive A 02/13/21 02/13/21 02/13/21 09:03 13:08 15:37 RBC Hgb Hct MCV Plt Count Lymph % (Auto) Maury % (Auto) Maury # (Auto) Seg Neutrophils % Seg Neutrophils # D-Dimer VBG pH Sodium 136 L Chloride Carbon Dioxide 11 L BUN Glucose 250 H POC Glucose 231 H 249 H Hemoglobin A1c Calcium Phosphorus Magnesium Ferritin Alkaline Phosphatase C-Reactive Protein Total Protein Albumin Coronavirus (PCR) 02/13/21 02/13/21 02/14/21 17:54 21:32 05:20 RBC Hgb 16.0 H Hct 48.4 H MCV 98 H Plt Count 133 L Lymph % (Auto) Maury % (Auto) Maury # (Auto) Seg Neutrophils % Seg Neutrophils # D-Dimer VBG pH Sodium Chloride Carbon Dioxide BUN Glucose POC Glucose 241 H 246 H Hemoglobin A1c Calcium Phosphorus Magnesium Ferritin Alkaline Phosphatase C-Reactive Protein Total Protein Albumin Coronavirus (PCR) 08/02/14/21 02/14/21 05:20 08:40 13:24 RBC Hgb Hct MCV Plt Count Lymph % (Auto) Maury % (Auto) Maury # (Auto) Seg Neutrophils % Seg Neutrophils # D-Dimer VBG pH Sodium 135 L Chloride Carbon Dioxide 14 L BUN Glucose 171 H POC Glucose 200 H 269 H Hemoglobin A1c Calcium Phosphorus Magnesium Ferritin Alkaline Phosphatase 146 H C-Reactive Protein Total Protein Albumin 3.4 L Coronavirus (PCR) Chest x-ray: report reviewed, image reviewed Additional Studies: Chest Xray 02/11/21 reported no acute findings.
--- NOTE | 2021-02-14 16:58 | Discharge Summary ---
Providers - Providers Date of Admission: 02/12/21 03:23 Date of discharge: 02/14/21 Attending physician: KAMARI HESS 02/12/21 11:34 Consult to Physician [CONS] Routine Comment: Consulting Provider: ANTONIA BRADFORD Physician Instructions: Reason For Exam: DKA 02/12/21 11:40 Consult to Dietitian/Nutrition [CONS] Routine Physician Instructions: Diabetic diet education Reason For Exam: DKA Reason for Consult: Nutrition Recommendations Reason for Consult: Diet education 02/13/21 17:39 Consult to Physician [CONS] Routine Comment: Consulting Provider: JACKLYN COX Physician Instructions: Reason For Exam: COVID-19 infection Primary care physician: [employer] Hospitalization Condition: Critical Hospital course: Subjective Date of service: 02/14/21 Principal diagnosis: DKA and coronavirus PCR positive Interval history: Patient is doing well now and on room air No need for oxygen Patient is coronavirus positive Glucose levels are better Metabolic acidosis improved okay. Magnesium moderately recommended Now (1) Person under investigation for COVID-19 Status: Acute Plan to address problem: Coronavirus PCR positive On room air No need for supplemental oxygen No need for stress steroids (2) DKA (diabetic ketoacidosis) Status: Acute Qualifiers: Diabetes mellitus type: type 2 Diabetes mellitus complication detail: without coma Qualified Code(s): E11.10 - Type 2 diabetes mellitus with ketoacidosis without coma Plan to address problem: Patient is doing well on insulin 70/30 20 units twice a day DKA improved DKA improved (3) Metabolic acidosis Status: Acute Plan to address problem: Improved (4) Hyponatremia Status: Acute Plan to address problem: Sodium was corrected (5) DVT prophylaxis Status: Acute Plan to address problem: On heparin and GI prophylaxis Disposition: 01 HOME / SELF CARE / HOMELESS Final Discharge Diagnosis (Prints w/discharge instructions): DKA. Covid positive. Hyponatremia. Metabolic acidosis Time spent for discharge: 32 minutes - Discharge Diagnoses (1) Person under investigation for COVID-19 Status: Acute (2) DKA (diabetic ketoacidosis) Status: Acute Qualifiers: Diabetes mellitus type: type 2 Diabetes mellitus complication detail: without coma Qualified Code(s): E11.10 - Type 2 diabetes mellitus with ketoacidosis without coma Core Measure Documentation - Palliative Care Palliative Care/ Comfort Measures: Not Applicable - Core Measures Any of the following diagnoses?: none Exam - Constitutional Vitals: Temp Pulse Resp BP Pulse Ox 98.2 F 68 18 97/58 98 02/13/21 10:27 02/14/21 03:00 02/14/21 03:00 02/14/21 03:00 02/14/21 03:00 General appearance: Present: no acute distress, well-nourished - EENT Eyes: Present: PERRL ENT: hearing intact, clear oral mucosa - Neck Neck: Present: supple, normal ROM - Respiratory Respiratory effort: normal Respiratory: bilateral: CTA - Cardiovascular Heart rate: 78 Rhythm: regular Heart Sounds: Present: S1 & S2. Absent: rub, click - Extremities Extremities: no ischemia, pulses intact, pulses symmetrical, No edema Peripheral Pulses: within normal limits - Abdominal General gastrointestinal: Present: soft, non-tender, non-distended, normal bowel sounds Male genitourinary: Present: normal - Integumentary Integumentary: Present: clear, warm, dry - Musculoskeletal Musculoskeletal: gait normal, strength equal bilaterally - Psychiatric Psychiatric: appropriate mood/affect, intact judgment & insight - Neurologic Neurologic: CNII-XII intact, moves all extremities - Allied Health Allied health notes reviewed: nursing, case management Plan Follow up with: PRIMARY CARE, [Primary Care Provider] - 3-5 Days Prescriptions: Insulin NPH Hum/Reg Insulin Hm [Novolin 70-30 100 Unit/ml Vial] 20 unit SQ BID #2 vial Ascorbic Acid [Vitamin C] 1,000 mg PO QDAY #30 tablet Cholecalciferol (Vitamin D3) [Vitamin D3] 5,000 unit PO DAILY #30 tablet Zinc Sulfate 0 mg PO BID #20 capsule Other Discharge Orders: Glucometer (Amb) Location: None Selected Glucometer supplies[Amb] Location: None Selected
[2021-02-14 17:33] VITALS: BP 111/77
== END 2021-02-14 18:25 | disposition home or self-care (01) | DRG 177 ==
LOC: ED 15:06 → CC1 02-12 03:23 → 3A 02-13 19:05
PROVIDERS: ADMIT Internal Medicine Geriatric Medicine; ATTEND Internal Medicine
DX: U07.1 COVID-19 (principal); E11.10 Type 2 diabetes mellitus with ketoacidosis without coma; Z79.84 Long term (current) use of oral hypoglycemic drugs
CPT/HCPCS: 36415; 71046; 80048; 80053; 81001; 82728; 82805; 82962; 83036; 83615; 83735; 84100; 84145; 85025; 85379; 86140; G0378; J1644; J1815; J7030; U0003

== ENCOUNTER 2022-03-24 20:42 | Emergency (ER) | payer SELFPAY ==
[2022-03-24 20:49] VITALS: BP 103/66
--- NOTE | 2022-03-24 21:38 | XRay Report ---
LEFT HAND 3 VIEW(S) INDICATION / CLINICAL INFORMATION: injury with pain and swelling COMPARISON: None available. FINDINGS: BONES / JOINT(S): No acute fracture or subluxation. No significant arthritis. SOFT TISSUES: No significant abnormality. ADDITIONAL FINDINGS: None. Signer Name: Luis Fuller DO Signed: 03/24/2022 9:33 PM Workstation Name: [id number]
== END 2022-03-24 23:59 | disposition home or self-care (01) ==
LOC: ED 20:42
DX: S69.90XA Unspecified injury of unspecified wrist, hand and finger(s), initial encounter (principal); Z53.21 Procedure and treatment not carried out due to patient leaving prior to being seen by health care provider; X58.XXXA Exposure to other specified factors, initial encounter; Y93.89 Activity, other specified; Y92.89 Other specified places as the place of occurrence of the external cause; Y99.8 Other external cause status